=== PATIENT | male | born 1970 | race Caucasian/White ===

== ENCOUNTER 2017-08-01 13:44 | Emergency (ER) | payer SELFPAY ==
[~2017-08-01] VITALS: Ht 175.3 cm; Wt 83.9 kg
[2017-08-01] MEDS ORDERED: FLUORESCEIN SODIUM 1 MG STRIP ONE (14:18)
[2017-08-01] MEDS ORDERED: TETRACAINE HCL 0.5% OPHT DROP 2 ML BOTTLE ONE (14:18)
--- NOTE | 2017-08-01 14:46 | NUR ---
Patient discharged to home in stable conditon. Written and verbal after care instructions given. Patient verbalizes understanding of instructions.
[2017-08-01] MEDS ORDERED: FLUORESCEIN SODIUM 1 MG STRIP OP ONE (15:00)
[2017-08-01] MEDS ORDERED: TETRACAINE HCL 0.5% OPHT DROP 2 ML BOTTLE OP ONE (15:00)
== END 2017-08-01 14:47 | disposition home or self-care (01) ==
LOC: ER 13:51
DX: H20.9 Unspecified iridocyclitis (principal); Z90.89 Acquired absence of other organs
CPT/HCPCS: A4663

== ENCOUNTER 2017-11-12 17:05 | Emergency (ER) | payer MEDICAID ==
[~2017-11-12] VITALS: Ht 175.3 cm; Wt 83.9 kg
--- NOTE | 2017-11-12 19:46 | NUR ---
Dr. Quang THOMPSON MD at bedside for MSE.
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
[2017-11-12] MEDS ORDERED: TDAP DIPH,PERTUSS,TET VAC/PF 0.5 ML DISP.SYRIN IM ONE ×2 (20:00→20:12)
[2017-11-12] MEDS ORDERED: CEPHALEXIN MONOHYDRATE 500 MG CAPSULE PO ONE (20:00)
[2017-11-12] MEDS ORDERED: CEPHALEXIN MONOHYDRATE 500 MG CAPSULE ONE (20:12)
--- NOTE | 2017-11-12 20:15 | NUR ---
Pt went down to radiology dept. for CT scan.
--- NOTE | 2017-11-12 20:29 | NUR ---
Pt back from CT scan. No acute distress noted.
[2017-11-12] MEDS ORDERED: IV NORMAL SALINE 1000 ML BAG IV ONE (20:45)
[2017-11-12 21:00] LABS: BASOPHILS # (AUTO) 0.1 K/uL (0.0-8.0); BASOPHILS % (AUTO) 0.7 % (0.0-2.0); EOSINOPHILS # (AUTO) 0.1 K/uL (0.0-0.7); EOSINOPHILS % (AUTO) 1.9 % (0.0-7.0); HEMATOCRIT 37.3 % (36.7-47.1); HEMOGLOBIN 12.6 g/dL (12.5-16.3); LYMPHOCYTES # (AUTO) 2.5 K/uL (20.0-40.0); LYMPHOCYTES % (AUTO) 33.2 % (20.5-51.5); MEAN CORPUSCULAR HEMOGLOBIN 29.7 uug (23.8-33.4); MEAN CORPUSCULAR HGB CONC 34 g/dL (32.5-36.3); MEAN CORPUSCULAR VOLUME 87.8 fL (73.0-96.2); MONOCYTES # (AUTO) 0.5 K/uL (2.0-10.0); MONOCYTES % (AUTO) 6.8 % (0.0-11.0); NEUTROPHILS # (AUTO) 4.3 K/uL (1.8-8.9); NEUTROPHILS % (AUTO) 57.4 % (38.5-71.5); PLATELET COUNT (AUTO) 238 K/uL (152-348); RED BLOOD CELL COUNT(AUTO) 4.24 MIL/uL (4.06-5.63); WHITE BLOOD COUNT (AUTO) 7.5 K/uL (3.6-10.2)
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
--- NOTE | 2017-11-12 21:12 | NUR ---
EMS called for transfer to higher level of care per Virgie Oviedo instruction
[2017-11-12 21:14] LABS: BILIRUBIN,DIRECT 0.2 mg/dL (0.0-0.2); BILIRUBIN,TOTAL 0.8 mg/dL (0.2-1.0); CREATININE 0.9 mg/dL (0.6-1.3); POTASSIUM 4.2 mmol/L (3.5-5.1); TOTAL PROTEIN, SERUM 6.6 g/dL (6.4-8.2)
--- NOTE | 2017-11-12 21:14 | NUR ---
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
== END 2017-11-12 21:22 | disposition short-term general hospital (02) ==
LOC: ER 17:08
DX: S31.03 Puncture wound without foreign body of lower back and pelvis (principal); F15.10 Other stimulant abuse, uncomplicated; Z59.0 Homelessness; Z90.89 Acquired absence of other organs; X58.XXXA Exposure to other specified factors, initial encounter; Y93.89 Activity, other specified; Y92.89 Other specified places as the place of occurrence of the external cause; Y99.8 Other external cause status
CPT/HCPCS: 36415; 70030-TC; 83690; 85025; 85730; 86850; 86900; 86901; 90715; A4217; A4663; J7030